=== PATIENT | male | born 1965 | race African-American/Black ===

== ENCOUNTER 2019-04-15 12:10 | Emergency (ER) | payer MEDICAID ==
[~2019-04-15] VITALS: Ht 180.3 cm; Wt 87.5 kg
--- NOTE | 2019-04-15 12:29 | NUR ---
ED Nurse Note:pt. was BIBA from home due to sniffing fentanil this morning and feeling dizzy after that, pt. is A/Ox4 ambulatory, rachelely julianna, VSS, placed on nuclear monitoring technician
[2019-04-15 12:48] VITALS: BP 126/78
[2019-04-15 13:05] LABS: BASOPHILS % (AUTO) 2.4 % (0.0-2.0); HEMATOCRIT 42.6 % (42.0-52.0); HEMOGLOBIN 14.4 G/DL (14.2-18.0); LYMPHOCYTES % (AUTO) 8.4 % (20.0-45.0); MEAN CORPUSCULAR VOLUME 96 FL (80-99); MONOCYTES % (AUTO) 9.5 % (1.0-10.0); NEUTROPHILS % (AUTO) 79.7 % (45.0-75.0); PLATELET COUNT 175 K/UL (150-450); RED BLOOD COUNT 4.42 M/UL (4.70-6.10); RED CELL DISTRIBUTION WIDTH 15.2 % (11.6-14.8); WHITE BLOOD COUNT 10.9 K/UL (4.8-10.8)
[2019-04-15 13:18] LABS: ANION GAP 12 mmol/L (5-15); BLOOD UREA NITROGEN 17 mg/dL (7-18); CALCIUM 8.8 MG/DL (8.5-10.1); CARBON DIOXIDE 24 MMOL/L (21-32); CHLORIDE 104 MMOL/L (98-107); CREATININE 1.3 MG/DL (0.55-1.30); POTASSIUM 4.2 MMOL/L (3.5-5.1); SODIUM 140 MMOL/L (136-145)
[2019-04-15 13:22] LABS: ALANINE AMINOTRANSFERASE 84 U/L (12-78); ALBUMIN 3.7 G/DL (3.4-5.0); ALBUMIN/GLOBULIN RATIO 0.8 (1.0-2.7); ALKALINE PHOSPHATASE 73 U/L (46-116); ASPARTATE AMINO TRANSFERASE 102 U/L (15-37); BILIRUBIN,TOTAL 0.4 MG/DL (0.2-1.0); CREATINE KINASE 242 U/L (26-308)
[2019-04-15] MEDS ORDERED: TYLENOL EXTRA500 MG ORAL (13:24)
--- NOTE | 2019-04-15 13:54 | Emergency Room Report ---
History of Present Illness General Chief Complaint: Dyspnea/Respdistress Source: Patient, EMS Present Illness HPI Found by kids on floor. Had bought "cocaine". Apparently possibly laced with Fentanyl. He was on the floor for 2 and half to 3 hours. He does not remember how he got to the floor. The patient was taking shallow and abnormal respirations when the daughter found him. She lifted them up and he was weight at that time. When she sat him up his breathing was improved. He was still lethargic at that time. Paramedics were summoned. When they arrived his respiratory rate was decreased but adequate enough not to require administration of Narcan. He was not cyanotic at that time. He was able to answer questions and was transported to the emergency department. Now c/o L lower leg numbness. In addition he has weakness of his foot. 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 This involves his upper extremity. This has not changed. He denies pain, chest pain, dyspnea, fevers, head pain, neck pain, back pain, depression or intent to harm himself. There was no lingual trauma or incontinence. No prior seizure disorder. Before this episode he was feeling well. Allergies: Coded Allergies: No Known Allergies (Unverified , 04/15/19) Patient History Past Medical History: see triage record Past Surgical History: other - Spine surgery Social History: Reports: smoking, drug use - Cocaine Reviewed Nursing Documentation: PMH: Agreed; PSxH: Agreed Nursing Documentation-PMH Hx Hypertension: Yes Review of Systems All Other Systems: negative except mentioned in HPI Physical Exam Vital Signs Date Time Temp Pulse Resp B/P (MAP) Pulse Ox O2 Delivery O2 Flow Rate FiO2 04/15/19 12:05 98.4 117 20 142/90 (107) 97 Room Air Sp02 EP Interpretation: reviewed, normal General Appearance: no apparent distress, alert, non-toxic, other - Slightly slow to respond Head: normocephalic, atraumatic Eyes: bilateral eye normal inspection, bilateral eye PERRL - Pupils small, bilateral eye EOMI ENT: moist mucus membranes - No lingual macerations Neck: full range of motion, supple, no bony tend Respiratory: chest non-tender, lungs clear, normal breath sounds Cardiovascular #1: regular rate, rhythm Cardiovascular #2: 2+ radial (R) Gastrointestinal: normal inspection, non tender, no mass, non-distended Genitourinary: no CVA tenderness Musculoskeletal: back normal, normal range of motion, other - No lower extremity tenderness Neurologic: alert, DTRs symmetric, motor weakness - Left foot, all others normal, sensory deficit - Left lower leg, all others normal, oriented - X2 Skin: no rash Medical Decision Making Diagnostic Impression: Primary Impression: Substance abuse Additional Impressions: Peroneal nerve injury Qualified Codes: S84.12XA - Injury of peroneal nerve at lower leg level, left leg, initial encounter Overdose Qualified Codes: T50.901A - Poisoning by unspecified drugs, medicaments and biological substances, accidental (unintentional), initial encounter ER Course Presents with slight lethargy and left leg weakness and numbness after snorting cocaine earlier and being "out" on floor for several hours. Patient did not require Narcan administration in the field. Differential includes opiate overdose, electrolyte imbalance, acute myocardial infarction, pulmonary edema, peroneal nerve palsy amongst others. Evaluation with EKG, chest x-ray and labs. Treatment with IV hydration. We also need to exclude rhabdomyolysis. There is no evidence of CVA. There is no evidence of head trauma. CT of the head is not indicated. EKG without injury. Chest x-ray no infiltrates. Labs essentially normal. CPK not elevated. Persistent L leg weakness and numbness. No other (new) neurologic findings - had cervical surgery. Attempting to urinate. Continued hydration. Discussed findings with patient. Also discussed the need for return to 12-step program. Awaiting urinalysis. Patient is improved and mentation is normal. He still denies suicidal intent. Naloxone and vitamin D ordered. Discussed with the patient the need for follow- up with neurologist and possible EMG in the future. Signed out to Dr. Diaz. Laboratory Tests Test 04/15/19 12:45 04/15/19 16:20 White Blood Count 10.9 K/UL (4.8-10.8) H Red Blood Count 4.42 M/UL (4.70-6.10) L Hemoglobin 14.4 G/DL (14.2-18.0) Hematocrit 42.6 % (42.0-52.0) Mean Corpuscular Volume 96 FL (80-99) Mean Corpuscular Hemoglobin 32.6 PG (27.0-31.0) H Mean Corpuscular Hemoglobin Concent 33.8 G/DL (32.0-36.0) Red Cell Distribution Width 15.2 % (11.6-14.8) H Platelet Count 175 K/UL (150-450) Mean Platelet Volume 5.2 FL (6.5-10.1) L Neutrophils (%) (Auto) 79.7 % (45.0-75.0) H Lymphocytes (%) (Auto) 8.4 % (20.0-45.0) L Monocytes (%) (Auto) 9.5 % (1.0-10.0) Eosinophils (%) (Auto) 0.0 % (0.0-3.0) Basophils (%) (Auto) 2.4 % (0.0-2.0) H Sodium Level 140 MMOL/L (136-145) Potassium Level 4.2 MMOL/L (3.5-5.1) Chloride Level 104 MMOL/L (98-107) Carbon Dioxide Level 24 MMOL/L (21-32) Anion Gap 12 mmol/L (5-15) Blood Urea Nitrogen 17 mg/dL (7-18) Creatinine 1.3 MG/DL (0.55-1.30) Estimate Glomerular Filtration Rate 57.1 mL/min (>60) Glucose Level 77 MG/DL (74-106) Calcium Level 8.8 MG/DL (8.5-10.1) Total Bilirubin 0.4 MG/DL (0.2-1.0) Aspartate Amino Transferase (AST) 102 U/L (15-37) H Alanine Aminotransferase (ALT) 84 U/L (12-78) H Alkaline Phosphatase 73 U/L (46-116) Total Creatine Kinase 242 U/L (26-308) Total Protein 8.2 G/DL (6.4-8.2) Albumin 3.7 G/DL (3.4-5.0) Globulin 4.5 g/dL Albumin/Globulin Ratio 0.8 (1.0-2.7) L Salicylates Level 4.1 ug/mL (2.8-20) Acetaminophen Level < 2 MCG/ML (10-30) L Serum Alcohol 4 mg/dL Urine Color Pale yellow Urine Appearance Clear Urine pH 5 (4.5-8.0) Urine Specific [place] 1.025 (1.005-1.035) Urine Protein 2+ (NEGATIVE) H Urine Glucose (UA) Negative (NEGATIVE) Urine Ketones 2+ (NEGATIVE) H Urine Blood Negative (NEGATIVE) Urine Nitrite Negative (NEGATIVE) Urine Bilirubin Negative (NEGATIVE) Urine Urobilinogen Normal MG/DL (0.0-1.0) Urine Leukocyte Esterase Negative (NEGATIVE) Urine RBC 0-2 /HPF (0 - 0) H Urine WBC 2-4 /HPF (0 - 0) Urine Squamous Epithelial Cells None /LPF (NONE/OCC) Urine Bacteria Few /HPF (NONE) Urine Fine Granular Casts 0-2 /LPF (NONE) H Urine Opiates Screen Negative (NEGATIVE) Urine Barbiturates Screen Negative (NEGATIVE) Phencyclidine (PCP) Screen Negative (NEGATIVE) Urine Amphetamines Screen Negative (NEGATIVE) Urine Benzodiazepines Screen Negative (NEGATIVE) Urine Cocaine Screen Positive (NEGATIVE) H Urine Marijuana (THC) Screen Negative (NEGATIVE) EKG Diagnostic Results Rate: normal Rhythm: NSR ST Segments: no acute changes - Prolonged QT 485 Rhythm Strip Diag. Results EP Interpretation: yes Rhythm: NSR, no PVC's, no ectopy Chest X-Ray Diagnostic Results Chest X-Ray Diagnostic Results : Chest X-Ray Ordered: Yes # of Views/Limited/Complete: 1 View Indication: Other EP Interpretation: Yes Interpretation: no consolidation, no effusion, no pneumothorax Impression: No acute disease Electronically Signed by: Electronically signed by Lalito Abdullahi MD Last Vital Signs Date Time Temp Pulse Resp B/P (MAP) Pulse Ox O2 Delivery O2 Flow Rate FiO2 04/15/19 17:49 98.4 86 16 126/79 98 Room Air Status: improved Disposition: HOME, SELF-CARE Condition: Improved Scripts Naloxone HCl (Narcan) 4 Mg [place] 4 MG NS NEEDED, #1 SPRAY 1 Refill Prov: Lalito Abdullahi MD 04/15/19 Cyanocobalamin/Fa/Pyridoxine (B COMPLEX-FOLIC ACID TABLET) 1 Each Tablet 1 TAB ORAL DAILY, #30 TAB 0 Refills Prov: Lalito Abdullahi MD 04/15/19 Referrals: NON PHYSICIAN (PCP) Lalito Abdullahi MD Apr 15, 2019 13:54
--- NOTE | 2019-04-15 14:28 | Diagnostic Imaging Report ---
Indication: Cough Technique: One view of the chest Comparison: none Findings: Questionable hazy infiltrate is seen at the right lung base. This may just reflect overlying soft tissue, however. The remainder the lungs and pleural spaces are clear. Heart is upper limits of normal in size. The bones are unremarkable Impression: Questionable right basilar infiltrate, could indicate pneumonia if real. Correlate with clinical findings No acute process otherwise
[2019-04-15] MEDS ORDERED: B COMPLEX-FOLI1 EACH ORAL (15:14)
[2019-04-15] MEDS ORDERED: NARCAN4 MG NS (15:23)
--- NOTE | 2019-04-15 16:13 | NUR ---
ED Nurse Note:pt. had CT done
--- NOTE | 2019-04-15 16:37 | Diagnostic Imaging Report ---
Indications: Vertigo after sniffing fentanyl Technique: Spiral acquisitions obtained through the brain. Angled axial and coronal 5 x 5 mm slices were reconstructed. Total dose length product 1418.26 mGycm. CTDI vol(s) 70.38 mGy. Dose reduction achieved using automated exposure control Comparison: None. Findings: There is mild age-related enlargement of the extra-axial CSF spaces. Normal cody-white differentiation. No acute intracranial hemorrhage or edema. Intact calvarium. Visualized orbits and sinuses are unremarkable. The mastoids are clear. Impression: Mild age-related volume loss Negative for acute intracranial bleed or mass effect The CT scanner at [facility], [place] is accredited by the [employer] and the scans are performed using protocols designed to limit radiation exposure to as low as reasonably achievable to attain images of sufficient resolution adequate for diagnostic evaluation.
[2019-04-15 16:46] LABS: APPEARANCE,URINE CLEAR; BILIRUBIN, URINE NEGATIVE (NEGATIVE); COLOR,URINE PALE YELLOW; GLUCOSE, URINE (UA) NEGATIVE (NEGATIVE); KETONES,URINE 2+ (NEGATIVE); LEUKOCYTE ESTERASE ,URINE NEGATIVE (NEGATIVE); NITRITE,URINE NEGATIVE (NEGATIVE); PH,URINE 5 (4.5-8.0); PROTEIN,URINE 2+ (NEGATIVE); UROBILINOGEN,URINE NORMAL MG/DL (0.0-1.0)
[2019-04-15 17:09] VITALS: BP 126/79
[2019-04-15 17:49] VITALS: BP 126/79
--- NOTE | 2019-04-15 17:50 | NUR ---
ER DISCHARGE NOTE: Patient is cleared to be discharged per ERMD, pt is aox4, on room air, with stable vital signs. pt was given dc and prescription instructions, pt was able to verbalize understanding, pt is able to ambulate with cane. pt took all belongings, was picked up by daughter
--- NOTE | 2019-04-16 16:40 | Cardiology Report ---
APPROVED REPORT EKG Measurement Heart [id number] Normal sinus rhythm Prolonged QT Abnormal ECG
== END 2019-04-15 17:30 | disposition home or self-care (01) ==
LOC: EDBD 12:10 → EMR 13:10
DX: F14.10 Cocaine abuse, uncomplicated (principal); S84.12XA Injury of peroneal nerve at lower leg level, left leg, initial encounter; X58.XXXA Exposure to other specified factors, initial encounter; Y92.89 Other specified places as the place of occurrence of the external cause; R53.83 Other fatigue; I10 Essential (primary) hypertension
CPT/HCPCS: 36415; 70450; 71045; 80053; 80307; 80329; 81003; 82550; 85025; 93005; 96360; 96361; 99284